=== PATIENT | male | born 1940 | race Caucasian/White ===

== ENCOUNTER → 2018-01-14 09:53 | Outpatient (CLI) | payer MEDICARE, SELFPAY ==
[2018-01-14 10:15] LABS: Add Manual Diff / Slide Review NO; Basophils Percent Auto 0.5 % (0-2); Eosinophils Percent Auto 2.8 % (2-4); Hematocrit 41.7 % (41-53); Hemoglobin 14.5 g/dL (13.5-17.5); Lymphocytes Percent Auto 23.1 % (25-40); Mean Corpuscular HGB Conc 34.7 % (30-36); Mean Corpuscular Hemoglobin 33.5 PG (26-34); Mean Corpuscular Volume 96.5 fL (80-100); Monocytes Percent Auto 8.4 % (3-14); Neutrophils Absolute Auto 2900 /uL (3000-5900); Neutrophils Percent Auto 65.2 % (50-75); Platelet Count 147 X10^3/uL (150-400); Red Blood Cell Count 4.33 X10^6/uL (4.5-5.9); Red Cell Distribution Width 13.1 % (11.6-14.8); White Blood Cell Count 4.5 X10^3/uL (4.5-11.0)
[2018-01-14 10:30] LABS: Alanine Aminotransferase 32 IU/L (21-72); Albumin 4.4 g/dL (3.5-5.0); Albumin Globulin Ratio 1.4 (1.0-2.8); Alkaline Phosphatase 58 U/L (38-126); Aspartate Aminotransferase 32 IU/L (17-59); BUN Creatinine Ratio 27.1 (6-22); Bilirubin Total 0.6 mg/dL (0.2-1.3); Blood Urea Nitrogen 19 mg/dL (9-20); Calcium 9.1 mg/dL (8.4-10.2); Carbon Dioxide 26 mmol/L (22-32); Chloride 104 mmol/L (98-107); Estimated Glomerular Filt Rate > 60.0 mL/min (>60); Globulin 3.2 g/dL (1.7-4.1); Glucose 89 mg/dL (80-110); HEMOLYSIS 22 (0-50); Potassium 4.4 mmol/L (3.4-5.1); Sodium 142 mmol/L (137-145); Total Protein 7.6 g/dL (6.3-8.2)
== END ==
PROVIDERS: Family Provider Family Medicine; PCP Family Medicine; Visit Provider Nurse Practitioner Gerontology
DX: C88.4 Extranodal marginal zone B-cell lymphoma of mucosa-associated lymphoid tissue [MALT-lymphoma] (principal)
CPT/HCPCS: 36415; 80053; 85025

== ENCOUNTER → 2018-02-28 08:18 | Outpatient (CLI) | payer MEDICARE, SELFPAY ==
[2018-02-28 09:25] LABS: Alanine Aminotransferase 28 IU/L (21-72); Albumin 4.1 g/dL (3.5-5.0); Albumin Globulin Ratio 1.5 (1.0-2.8); Alkaline Phosphatase 55 U/L (38-126); Aspartate Aminotransferase 28 IU/L (17-59); BUN Creatinine Ratio 17.8 (6-22); Bilirubin Total 0.9 mg/dL (0.2-1.3); Blood Urea Nitrogen 16 mg/dL (9-20); Carbon Dioxide 30 mmol/L (22-32); Chloride 104 mmol/L (98-107); Cholesterol 181 mg/dL (140-199); Estimated Glomerular Filt Rate > 60.0 mL/min (>60); Globulin 2.7 g/dL (1.7-4.1); Glucose 104 mg/dL (80-110); HDL Cholesterol 59 mg/dL (40-60); HEMOLYSIS < 15 (0-50); LDL Cholesterol Calculated 106 mg/dL (<100); Potassium 4.5 mmol/L (3.4-5.1); Sodium 141 mmol/L (137-145); Total Protein 6.8 g/dL (6.3-8.2); Triglycerides 79 mg/dL (35-150)
[2018-02-28 09:40] LABS: Add Manual Diff / Slide Review NO; Basophils Percent Auto 0.2 % (0-2); Lymphocytes Percent Auto 22.2 % (25-40); Mean Corpuscular HGB Conc 34.2 % (30-36); Mean Corpuscular Hemoglobin 33.4 PG (26-34); Mean Corpuscular Volume 97.5 fL (80-100); Monocytes Percent Auto 8.9 % (3-14); Neutrophils Absolute Auto 3200 /uL (3000-5900); Neutrophils Percent Auto 65.7 % (50-75); Platelet Count 137 X10^3/uL (150-400); Red Cell Distribution Width 12.7 % (11.6-14.8); White Blood Cell Count 4.8 X10^3/uL (4.5-11.0)
[2018-02-28 09:55] LABS: Prostate Specific Antigen Scrn 0.654 ng/mL (0.1-4.0)
== END ==
PROVIDERS: PCP Family Medicine; Visit Provider Family Medicine
DX: E78.5 Hyperlipidemia, unspecified (principal); Z12.5 Encounter for screening for malignant neoplasm of prostate
CPT/HCPCS: 36415; 80053; 80061; 85025; G0103

== ENCOUNTER → 2018-04-30 13:34 | Outpatient (CLI) | payer MEDICARE, SELFPAY ==
[2018-04-30 13:50] LABS: Add Manual Diff / Slide Review NO; Basophils Percent Auto 0.6 % (0-2); Eosinophils Percent Auto 1.1 % (2-4); Hematocrit 40.9 % (41-53); Lymphocytes Percent Auto 16.8 % (25-40); Mean Corpuscular HGB Conc 34.2 % (30-36); Mean Corpuscular Hemoglobin 33.1 PG (26-34); Mean Corpuscular Volume 96.7 fL (80-100); Monocytes Percent Auto 5.9 % (3-14); Neutrophils Absolute Auto 4000 /uL (3000-5900); Neutrophils Percent Auto 75.6 % (50-75); Platelet Count 137 X10^3/uL (150-400); Red Blood Cell Count 4.23 X10^6/uL (4.5-5.9); Red Cell Distribution Width 12.7 % (11.6-14.8); White Blood Cell Count 5.3 X10^3/uL (4.5-11.0)
[2018-04-30 14:02] LABS: Alanine Aminotransferase 31 IU/L (21-72); Albumin 4.3 g/dL (3.5-5.0); Albumin Globulin Ratio 1.7 (1.0-2.8); Alkaline Phosphatase 47 U/L (38-126); Aspartate Aminotransferase 28 IU/L (17-59); BUN Creatinine Ratio 26.7 (6-22); Bilirubin Total 0.7 mg/dL (0.2-1.3); Blood Urea Nitrogen 24 mg/dL (9-20); Carbon Dioxide 27 mmol/L (22-32); Chloride 104 mmol/L (98-107); Estimated Glomerular Filt Rate > 60.0 mL/min (>60); Globulin 2.5 g/dL (1.7-4.1); Glucose 134 mg/dL (80-110); HEMOLYSIS < 15 (0-50); Lactate Dehydrogenase 476 U/L (313-618); Potassium 4.4 mmol/L (3.4-5.1); Sodium 142 mmol/L (137-145); Total Protein 6.8 g/dL (6.3-8.2)
== END ==
PROVIDERS: Internal Medicine Hematology & Oncology; Family Provider Family Medicine; PCP Family Medicine; Visit Provider Internal Medicine Hematology & Oncology
DX: C88.4 Extranodal marginal zone B-cell lymphoma of mucosa-associated lymphoid tissue [MALT-lymphoma] (principal)
CPT/HCPCS: 36415; 80053; 83615; 85025

== ENCOUNTER 2018-05-02 15:30 | Oncology outpatient (ONC) | payer MEDICARE, SELFPAY ==
--- NOTE | 2018-01-15 11:24 | ONC.GEN.PN ---
Diagnosis (1) MALT lymphoma Diagnosis: 01/15/18 11:24 Previous EGD in February/2013 confirmed a large gastric ulcer. 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 Treated with radiation therapy. Subsequent relapse the lung in December/2008. Treated at that time with single agent Rituxan, completed in March/2011. Last EGD, ?2016 (report requested). History of Present Illness History Of Present Illness: 01/15/18 11:27 Mitchel returns today for routine follow-up. His last visitation here was in mid July,. He has done quite well in the interim. He denies any new lumps or bumps. He denies any recent fever. He generally has leach tank tender night sweats, after consuming alcohol the evening before. Currently, he averages 2 adult beverages per day. He is now on CPAP 6 nights per week. His recent blood pressure has been doing well. He is currently on only 5 mg of lisinopril per day. He will be leaving for his winter hiatus in [place] the of May. He and his generally remain in [place] until early December. Home Medications and Allergies Home Medications Medication Instructions Recorded Confirmed Type CHOLECALCIFEROL (VITAMIN D3) 400 unit PO QDAY #0 02/12/13 01/15/18 History (Vitamin D3) cyanocobalamin (vitamin B-12) 500 mcg PO QDAY #0 tab 08/14/16 01/15/18 History [Vitamin B-12] valacyclovir [Valtrex] 1,000 mg PO QDAY #3 tab 08/14/16 01/15/18 Rx lutein 20 mg PO QDAY #0 07/20/17 01/15/18 History vitamins A,C,S-yhzt-slvjkg 1 sgl PO QAM #0 07/20/17 01/15/18 History [PreserVision AREDS] lovastatin 20 mg tablet 20 mg PO HS #60 tab 01/10/18 01/15/18 Rx lisinopril 5 mg PO QDAY 01/15/18 01/15/18 History Allergies Allergy/AdvReac Type Severity Reaction Status Date / Time dorzolamide [From Cosopt] Allergy Unknown Unverified 11/14/17 11:55 timolol [From Cosopt] Allergy Unknown Unverified 11/14/17 11:55 Exam Exam: Blood pressure 119/67. O2 saturation on room air was 98%. Temperature 98.7?. Pulse rate 53. Weight 217 lb. The oropharynx today was clear. Both lungs were clear to auscultation and percussion. No pathologic lymphadenopathy was noted today in the pre or postauricular, neck, chin, supraclavicular, axillary, epitrochlear or inguinal areas. His heart sounds were fine. His abdomen was soft, nontender and without palpable organomegaly. There was no lower extremity edema. His skin examination was unremarkable. Impression Mitchel looks great today. His examination is completely normal. I will attempt to track down a copy of his recent EGD report. I have this gentleman returning for triage the 1st week in May, prior to his departure to [place]. I wished him well.
--- NOTE | 2018-01-15 11:29 | P.PNONC_ITS ---
Diagnosis (1) MALT lymphoma Diagnosis: 01/15/18 11:24 Previous EGD in February/2013 confirmed a large gastric ulcer. 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 Treated with radiation therapy. Subsequent relapse the lung in December/2008. Treated at that time with single agent Rituxan, completed in March/2011. Last EGD, ?2016 (report requested). History of Present Illness History Of Present Illness: 01/15/18 11:27 Mitchel returns today for routine follow-up. His last visitation here was in mid July,. He has done quite well in the interim. He denies any new lumps or bumps. He denies any recent fever. 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 Currently, he averages 2 adult beverages per day. He is now on CPAP 6 nights per week. His recent blood pressure has been doing well. He is currently on only 5 mg of lisinopril per day. He will be leaving for his winter hiatus in [place] the of May. He and his generally remain in [place] until early December. Home Medications and Allergies Home Medications Medication Instructions Recorded Confirmed Type CHOLECALCIFEROL (VITAMIN D3) 400 unit PO QDAY #0 02/12/13 01/15/18 History (Vitamin D3) cyanocobalamin (vitamin B-12) 500 mcg PO QDAY #0 tab 08/14/16 01/15/18 History [Vitamin B-12] valacyclovir [Valtrex] 1,000 mg PO QDAY #3 tab 08/14/16 01/15/18 Rx lutein 20 mg PO QDAY #0 07/20/17 01/15/18 History vitamins A,C,P-lutq-qwvick 1 sgl PO QAM #0 07/20/17 01/15/18 History [PreserVision AREDS] lovastatin 20 mg tablet 20 mg PO HS #60 tab 01/10/18 01/15/18 Rx lisinopril 5 mg PO QDAY 01/15/18 01/15/18 History Allergies Allergy/AdvReac Type Severity Reaction Status Date / Time dorzolamide [From Cosopt] Allergy Unknown Unverified 11/14/17 11:55 timolol [From Cosopt] Allergy Unknown Unverified 11/14/17 11:55 Exam Exam: Blood pressure 119/67. O2 saturation on room air was 98%. Temperature 98.7?. Pulse rate 53. Weight 217 lb. The oropharynx today was clear. Both lungs were clear to auscultation and percussion. No pathologic lymphadenopathy was noted today in the pre or postauricular, neck, chin, supraclavicular, axillary, epitrochlear or inguinal areas. His heart sounds were fine. His abdomen was soft, nontender and without palpable organomegaly. There was no lower extremity edema. His skin examination was unremarkable. Impression Mitchel looks great today. His examination is completely normal. I will attempt to track down a copy of his recent EGD report. I have this gentleman returning for triage the 1st week in May, prior to his departure to [place]. I wished him well.
[2018-01-15 11:35] VITALS: BP 119/67; PULSE 52; RESP 15; O2SAT 98
--- NOTE | 2018-05-02 15:55 | ONC.PN ---
PN -Subjective Interval history: Chief complaint 78-year-old gentleman with history of marginal zone lymphoma Interim events Patient came here today for scheduled follow-up visit. Patient clinically has been doing well without any new complaints. He atient complains only mild night sweats. He does not need to change clothes during the night. No fever. No chills. No enlarged lymph nodes. No shortness of breath no chest pain. No abdominal pain no diarrhea and no constipation. Overall patient has been doing well without clear evidence clinically of recurrence his previous known marginal zone lymphoma. Oncological history The patient said that every 5 years patient would have a recurrence of his no marginal zone lymphoma. The very 1st marginal zone lymphoma was diagnosed in 2001 in the right orbit. It was extremely rare. Patient underwent local radiation treatment. And 5 years later probably around 2008 patient had a relapse in the left lung according to patient. Patient was treated with rituximab monotherapy for 4 weekly treatments followed by maintenance therapy with rituximab completed March 15, 2011. And then another 5 years later in October of 2012 patient was found to have a gastric marginal zone lymphoma after a EGD evaluation for a large gastric ulcers. Patient underwent localized radiation therapy. There after patient has been undergoing active surveillance. - Patient Self-Reported Symptoms SR Constitution: Night Sweats SR eye issues: Eye pain, Vision changes SR ears, nose, mouth, throat issues: Congestion SR respiratory issues: Cough - Additional ROS All systems PM: reviewed and no additional remarkable complaints except as stated Home Medications and Allergies Home Medications Medication Instructions Recorded Confirmed Type CHOLECALCIFEROL (VITAMIN D3) 400 unit PO QDAY #0 02/12/13 04/05/18 History (Vitamin D3) cyanocobalamin (vitamin B-12) 500 mcg PO QDAY #0 tab 08/14/16 04/05/18 History [Vitamin B-12] valacyclovir [Valtrex] 1,000 mg PO QDAY #3 tab 08/14/16 04/05/18 Rx lutein 20 mg PO QDAY #0 07/20/17 04/05/18 History vitamins A,C,K-pwrv-vgpwmi 1 sgl PO QAM #0 07/20/17 04/05/18 History [PreserVision AREDS] lisinopril 10 mg tablet 5 mg PO QDAY #180 tab 04/05/18 Rx lovastatin 20 mg tablet 20 mg PO HS #180 tab 08/31/18 Rx omega 3-svy-zfl-fish oil [Fish Oil] 05/02/18 History turmeric root extract 500 mg PO DAILY 05/02/18 05/02/18 History Allergies Allergy/AdvReac Type Severity Reaction Status Date / Time dorzolamide [From Cosopt] Allergy Unknown Unverified 04/05/18 14:07 timolol [From Cosopt] Allergy Unknown Unverified 04/05/18 14:07 Exam Vital signs: Temperature 98.2?, heart rate 62, respiratory rate 18, blood pressure 104/65. Narrative: ECO Constitutional: Well developed, well nourished, not in any acute respiratory distress, average body habitus, well groomed, pleasant and cooperative. HEENT: Normocephalic atraumatic. Extraocular muscle movement intact. Pupils are round, equal and reactive to light and accommodations. Anicteric sclera. No hearing difficulty; Oral mucus membrane moist and without ulcers. Neck: Supple, symmetrical, and tracheal midline; No palpable thyromegaly and no palpable lymph nodes. Respiratory: No use of accessory muscles. Clear to auscultation, and no wheezes or rales or rubs. Cardiovascular: Regular rate and rhythm, S1 and S2 normal, no murmurs gallops or rubs. No JVD. No pitting edema of lower extremities. Abdomen: Soft, nontender, non-distended, bowel sounds normal, no palpable organomegaly, no hernia, no palpable masses. Lower extremities: No palpable pedal edema. Lymphatic: no palpable lymph nodes in the neck, axillae, or groins. Musculoskeletal: normal gait and station, no clubbing, no cyanosis, no pitting edema. Skin: no rashes, no ulcers, no petechiae Neurological: Awake and alert and oriented x3. CN II-XII grossly intact. No focal motor or sensory deficit. Psychiatric: Good judgment, good insight, normal affect, normal thought process, cooperative, no depression, no anxiety. Results - Imaging Additional studies: Procedures Endoscopic excision or destruction of lesion or tissue of stomach (10/10/12) Endoscopic polypectomy of large intestine (10/10/12) Insertion of intraocular lens prosthesis at time of cataract extraction, one-stage (05/05/14) Phacoemulsification and aspiration of cataract (05/05/14) Assessment and Plan (1) MALT lymphoma I talked with the patient that I do not think there is any evidence from clinical point of view to suggest recurrence of his known marginal zone lymphoma. I will continue current active surveillance. And I will have the patient come back in 6 months repeat CBC CMP LDH and beta 2 microglobulin. Patient voiced understanding. I also talked with patient that if he noticed anything different he should call us without any hesitation. (2) HTN (hypertension) Patient will need to follow up with his primary care provider.
--- NOTE | 2018-05-02 16:57 | P.PNONC_ITS ---
PN -Subjective Interval history: Chief complaint 78-year-old gentleman with history of marginal zone lymphoma Interim events Patient came here today for scheduled follow-up visit. Patient clinically has been doing well without any new complaints. He atient complains only mild night sweats. He does not need to change clothes during the night. No fever. No chills. No enlarged lymph nodes. No shortness of breath no chest pain. No abdominal pain no diarrhea and no constipation. Overall patient has been doing well without clear evidence clinically of recurrence his previous known marginal zone lymphoma. Oncological history The patient said that every 5 years patient would have a recurrence of his no marginal zone lymphoma. The very 1st marginal zone lymphoma was diagnosed in 2001 in the right orbit. It was extremely rare. Patient underwent local radiation treatment. And 5 years later probably around 2008 patient had a relapse in the left lung according to patient. Patient was treated with rituximab monotherapy for 4 weekly treatments followed by maintenance therapy with rituximab completed March 15, 2011. And then another 5 years later in October of 2012 patient was found to have a gastric marginal zone lymphoma after a EGD evaluation for a large gastric ulcers. Patient underwent localized radiation therapy. There after patient has been undergoing active surveillance. - Patient Self-Reported Symptoms SR Constitution: Night Sweats SR eye issues: Eye pain, Vision changes SR ears, nose, mouth, throat issues: Congestion SR respiratory issues: Cough - Additional ROS All systems PM: reviewed and no additional remarkable complaints except as stated Home Medications and Allergies Home Medications Medication Instructions Recorded Confirmed Type CHOLECALCIFEROL (VITAMIN D3) 400 unit PO QDAY #0 02/12/13 04/05/18 History (Vitamin D3) cyanocobalamin (vitamin B-12) 500 mcg PO QDAY #0 tab 08/14/16 04/05/18 History [Vitamin B-12] valacyclovir [Valtrex] 1,000 mg PO QDAY #3 tab 08/14/16 04/05/18 Rx lutein 20 mg PO QDAY #0 07/20/17 04/05/18 History vitamins A,C,K-feoj-gimetl 1 sgl PO QAM #0 07/20/17 04/05/18 History [PreserVision AREDS] lisinopril 10 mg tablet 5 mg PO QDAY #180 tab 04/05/18 Rx lovastatin 20 mg tablet 20 mg PO HS #180 tab 08/31/18 Rx omega 2-yug-nzk-fish oil [Fish Oil] 05/02/18 History turmeric root extract 500 mg PO DAILY 05/02/18 05/02/18 History Allergies Allergy/AdvReac Type Severity Reaction Status Date / Time dorzolamide [From Cosopt] Allergy Unknown Unverified 04/05/18 14:07 timolol [From Cosopt] Allergy Unknown Unverified 04/05/18 14:07 Exam Vital signs: Temperature 98.2?, heart rate 62, respiratory rate 18, blood pressure 104/65. Narrative: ECO Constitutional: Well developed, well nourished, not in any acute respiratory distress, average body habitus, well groomed, pleasant and cooperative. HEENT: Normocephalic atraumatic. Extraocular muscle movement intact. Pupils are round, equal and reactive to light and accommodations. Anicteric sclera. No hearing difficulty; Oral mucus membrane moist and without ulcers. Neck: Supple, symmetrical, and tracheal midline; No palpable thyromegaly and no palpable lymph nodes. Respiratory: No use of accessory muscles. Clear to auscultation, and no wheezes or rales or rubs. Cardiovascular: Regular rate and rhythm, S1 and S2 normal, no murmurs gallops or rubs. No JVD. No pitting edema of lower extremities. Abdomen: Soft, nontender, non-distended, bowel sounds normal, no palpable organomegaly, no hernia, no palpable masses. Lower extremities: No palpable pedal edema. Lymphatic: no palpable lymph nodes in the neck, axillae, or groins. Musculoskeletal: normal gait and station, no clubbing, no cyanosis, no pitting edema. Skin: no rashes, no ulcers, no petechiae Neurological: Awake and alert and oriented x3. CN II-XII grossly intact. No focal motor or sensory deficit. Psychiatric: Good judgment, good insight, normal affect, normal thought process , cooperative, no depression, no anxiety. Results - Imaging Additional studies: Procedures Endoscopic excision or destruction of lesion or tissue of stomach (10/10/12) Endoscopic polypectomy of large intestine (10/10/12) Insertion of intraocular lens prosthesis at time of cataract extraction, one- stage (05/05/14) Phacoemulsification and aspiration of cataract (05/05/14) Assessment and Plan (1) MALT lymphoma I talked with the patient that I do not think there is any evidence from clinical point of view to suggest recurrence of his known marginal zone lymphoma. I will continue current active surveillance. And I will have the patient come back in 6 months repeat CBC CMP LDH and beta 2 microglobulin. Patient voiced understanding. I also talked with patient that if he noticed anything different he should call us without any hesitation. (2) HTN (hypertension) Patient will need to follow up with his primary care provider.
== END 2018-05-03 12:00 ==
PROVIDERS: Family Provider Family Medicine; PCP Family Medicine; Visit Provider Nurse Practitioner Gerontology
DX: C88.4 Extranodal marginal zone B-cell lymphoma of mucosa-associated lymphoid tissue [MALT-lymphoma] (principal); I10 Essential (primary) hypertension
CPT/HCPCS: 99214

== ENCOUNTER → 2018-11-29 15:15 | Outpatient (CLI) | payer MEDICARE, SELFPAY ==
[2018-11-29 15:44] LABS: Add Manual Diff / Slide Review NO; Basophils Absolute Auto 0 /uL (0-100); Basophils Percent Auto 0.3 % (0-2); Eosinophils Absolute Auto 0 /uL (0-450); Eosinophils Percent Auto 0.8 % (2-4); Hematocrit 45.9 % (41-53); Hemoglobin 15.6 g/dL (13.5-17.5); Lymphocytes Absolute Auto 1600 /uL (1100-4500); Mean Corpuscular HGB Conc 33.9 % (30-36); Mean Corpuscular Hemoglobin 33.2 PG (26-34); Mean Corpuscular Volume 97.8 fL (80-100); Monocytes Absolute Auto 400 /uL (0-900); Monocytes Percent Auto 7.1 % (3-14); Neutrophils Absolute Auto 3700 /uL (1500-7000); Neutrophils Percent Auto 63.8 % (50-75); Platelet Count 164 X10^3/uL (150-400); Red Blood Cell Count 4.69 X10^6/uL (4.5-5.9); Red Cell Distribution Width 13.4 % (11.6-14.8); White Blood Cell Count 5.7 X10^3/uL (4.5-11.0)
[2018-11-29 16:02] LABS: Erythrocyte Sedimentation Rate 6 MM/HR (0-15)
[2018-11-29 19:35] LABS: Alanine Aminotransferase 40 IU/L (21-72); Albumin 5.1 g/dL (3.5-5.0); Albumin Globulin Ratio 1.6 (1.0-2.8); Alkaline Phosphatase 72 U/L (38-126); Aspartate Aminotransferase 55 IU/L (17-59); BUN Creatinine Ratio 21.1 (6-22); Bilirubin Total 0.9 mg/dL (0.2-1.3); Blood Urea Nitrogen 19 mg/dL (9-20); Calcium 9.9 mg/dL (8.4-10.2); Carbon Dioxide 22 mmol/L (22-32); Chloride 103 mmol/L (98-107); Estimated Glomerular Filt Rate > 60.0 mL/min (>60); Globulin 3.2 g/dL (1.7-4.1); Glucose 75 mg/dL (80-110); HEMOLYSIS 46 (0-50); Potassium 4.5 mmol/L (3.4-5.1); Sodium 141 mmol/L (137-145); Total Protein 8.3 g/dL (6.3-8.2)
[2018-11-29 19:36] LABS: C-Reactive Protein Quant < 0.5 mg/dL (<1.0)
== END ==
PROVIDERS: Family Provider Family Medicine; PCP Family Medicine; Visit Provider Ophthalmology
DX: C79.9 Secondary malignant neoplasm of unspecified site (principal); C85.81 Other specified types of non-Hodgkin lymphoma, lymph nodes of head, face, and neck
CPT/HCPCS: 36415; 80053; 84443; 85025; 85651; 86140

== ENCOUNTER → 2018-12-03 06:38 | Outpatient (CLI) | payer MEDICARE, SELFPAY ==
--- NOTE | 2018-12-03 | DI.MRI.S_ITS ---
PROCEDURE: MR ORBITS FACE NECK WO/W CON INDICATIONS: ORBITAL LYMPHOMA TECHNIQUE: Noncontrast sagittal T1 spin echo, axial FLAIR, axial gradient echo, axial diffusion and ADC acquired through the brain. Coronal STIR, thin-slice axial T1 spin echo through the orbits. After the administration of contrast, thin-slice axial and coronal T1 spin echo with fat saturation through the orbits, axial T1 spin echo with fat saturation through the brain. COMPARISON: [facility], CT, SOFT TISSUE NECK W CONTRAST, 09/13/2010, 11:28. FINDINGS: Image quality: Excellent. Orbits: Along the inferior aspect of the left orbit, there is abnormal soft tissue seen, which is hyperintense on T2-weighted imaging and demonstrates abnormal enhancement, as on series 14 image 4. A portion of this abnormal enhancing soft tissue involves the inferior rectus muscle. The inferior rectus muscle appears mildly thickened posteriorly. This abnormal soft tissue spans 2.9 cm transversely by 9 mm craniocaudally, with AP extent of approximately 1.4 cm. Globes are symmetrical. Note is made of bilateral lens replacements. The optic nerves are normal in size, without abnormal signal or enhancement. The extra-ocular muscles are normal and symmetric in appearance. Lacrimal glands are normal. Optic chiasm is normal. Periorbital soft tissues appear normal. CSF spaces: Ventricles are normal in size and shape. Basal cisterns are patent. No extra-axial fluid collections. Brain: No intracranial bleeds or mass effects. No abnormal intracranial enhancement. Martinez-white matter interface is intact. Diffusion weighted images demonstrate no acute ischemic insults. Pituitary gland appears normal, without sellar or suprasellar masses. Brainstem appears normal. Normal intravascular flow voids are present. Skull and face: Calvarial marrow is normal in signal. Sinuses: Sinuses and mastoids are clear. 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 Mild leftward nasal septal deviation is seen, with a leftward directed bony nasal septal spur. IMPRESSION: Abnormal enhancing soft tissue can be seen involving the inferior aspect of the left orbit, which is consistent with the given history of orbital lymphoma. No significant intracranial abnormality is seen. Dictated by: Jean-Pierre Lou M.D. on 12/03/2018 at 8:41 Approved by: Jean-Pierre Lou M.D. on 12/03/2018 at 8:49
== END ==
PROVIDERS: Family Provider Family Medicine; PCP Family Medicine; Visit Provider Ophthalmology
DX: C85.81 Other specified types of non-Hodgkin lymphoma, lymph nodes of head, face, and neck (principal)
CPT/HCPCS: 70543

== ENCOUNTER 2019-01-16 15:15 | Day surgery (SDC) | payer MEDICARE, SELFPAY ==
--- NOTE | 2019-01-16 | PATH_ITS ---
[facility] Accession Number: [id number] . 01 Material submitted: . esophagus - PROXIMAL ESOPHAGEAL MASS . 02 Diagnosis: Proximal Esophagus, Mass, Biopsy: Squamous mucosa with submucosal lymphoid aggregate with severe crush artifact; please see comment. Negative for epithelial dysplasia or malignancy. MRV/01/22/2019 . 02 Comment: Sections are of squamous mucosa with a crushed submucosal lymphoid aggregate. This histologic finding may explain the endoscopic impression of a mass. Given the severe crush artifact, the lymphoid architecture cannot be fully evaluated. If there is clinical suspicion for a lymphoproliferative disorder, repeat biopsies with sampling for flow cytometry is recommended. . As part of routine fiberglass quality technician, Dr. Ramírez has reviewed this case and agrees with the above interpretation. . 02 Electronically signed: . Alok Carrasco MD, PhD, Pathologist NPI- [id number] . 01 Gross description: . PROXIMAL ESOPHAGEAL MASS: Received in formalin are multiple fragment(s) of elena, soft tissue measuring 0.4 x 0.4 x 0.2 cm in aggregate submitted entirely in 1 cassette(s) /CKI /CKI . 02 Microscopic: . Sections are of squamous mucosa with a submucosal aggregate of small round blue cells with significant crush artifact which hinders full histologic evaluation. Despite the crush artifact, there is no significant nuclear atypia, mitotic activity or necrosis appreciated. To further evaluate the submucosal nodule, a panel of immunohistochemical stains is performed (each with an appropriately positive control). The cells of interest are variably positive for CD3 and CD20, and are negative for NATALIE (pancytokeratin), chromogranin and synaptophysin immunoreactivity. The overall morphology and immunoprofile are consistent with a lymphoid population, and there is no evidence of a carcinoma or neuroendocrine neoplasm. . . * This test was developed and its performance characteristics determined by [facility]. It has not been cleared or approved by the U.S. Food and Drug Administration. The FDA has determined that such clearance or approval is not necessary. This test is used for clinical purposes. It should not be regarded as investigational or for research. . 02 Pathologist provided ICD-10: K22.9 . 02 CPT . 577041, L04311, I03685 Performed at: 01 [facility] [address] [place] [address], [place], [place] [id number] MD Landen Franklin MD Phone: [phone] Performed at: 02 [facility] [address] [place] [id number] MD Dory Berger MD Phone: [phone]
[2019-01-16 13:30] VITALS: BP 141/77; PULSE 51; RESP 16; TEMP 35.8; O2SAT 99
--- NOTE | 2019-01-16 16:47 | PM.HP.1 ---
History of Present Illness Date Patient Seen: 01/16/19 Time Patient Seen: 16:00 Chief complaint: 00256 EGD Narrative: pt seen and examened Unchanged since visit in clinic 01/14/19 Plan for EGD and esophageal mass biopsy Patient History Family & Social History Social History: household members spouse other pickle ball, swimming, walking; at least 1 hour aerobic activity daily Tobacco & Substance use: Smoking Status Never smoker Meds Home Medications Medication Instructions Recorded Confirmed Type CHOLECALCIFEROL (VITAMIN D3) 400 unit PO QDAY #0 02/12/13 01/14/19 History (Vitamin D3) cyanocobalamin (vitamin B-12) 500 mcg PO QDAY #0 tab 08/14/16 01/14/19 History [Vitamin B-12] PreserVision AREDS 1 sgl PO QAM #0 07/20/17 01/14/19 History lutein 20 mg PO QDAY #0 07/20/17 01/14/19 History lisinopril 10 mg tablet 5 mg PO QDAY #180 tab 04/05/18 01/14/19 Rx lovastatin 20 mg tablet 20 mg PO HS #180 tab 04/05/18 01/14/19 Rx omega 7-zhv-fij-fish oil [Fish Oil] 05/02/18 01/14/19 History turmeric root extract 500 mg PO DAILY 05/02/18 01/14/19 History Allergies Allergy/AdvReac Type Severity Reaction Status Date / Time dorzolamide [From Cosopt] Allergy Intermediate itchy Unverified 01/16/19 15:38 doxazosin [From Cardura] Allergy Intermediate Chest Pain Verified 01/16/19 15:38 timolol [From Cosopt] Allergy Intermediate itchy Unverified 01/16/19 15:38 Exam Vital Signs (past 8 hours): - 01/16/19 13:30 Temperature 96.5 F L Pulse Rate 51 L Respiratory Rate 16 Blood Pressure 141/77 H Pulse Oximetry 99 Oxygen Delivery Method Room Air
[2019-01-16] MEDS: TETRACAINE/BENZOCAINE/BUTAMBEN (CETACAINE) BOTTLE 1 SPRAY TOP (16:50)
[2019-01-16] MEDS: fentaNYL 250 MCG/5 ML INJ IV (17:07)
[2019-01-16] MEDS: MIDAZOLAM 5 MG/ML VIAL 4 MG IV (17:08)
--- NOTE | 2019-01-16 17:12 | P.OP.ENDO_ITS ---
Operative Date/Time/Diagnoses Date of procedure: 01/16/19 Time of procedure: 17:11 Pre-op diagnosis: FDG avid distal esophagus in setting of recurrent marginal zone lymphoma Post-op diagnosis: same Procedure & Clinicians Study performed: EGD with esophageal mass biopsies Same procedure as scheduled: Yes Indications: 78 yo man with hx of multiply recurrent marginal zone lymphoma PET- CT from 12/18/2018 portion of proximal esophagus had increased FDG up take. Pt will pill dysphasia as well Surgeon: Shivam Sims Procedure Notes SCOAP/Timeout: completed Procedure in detail: Pt was taken to the OR, a time-out was completed. He was sedated with a total procedural dose of 6 mg of midazolam, 75 micro g of fentanyl. In addition benzocaine spray was used on the pharynx. A gastroscope was introduced into the mouth the epiglottis was identified and the scope was easily passed into the proximal esophagus. A submucosal mass was briefly seen. The scope was advanced without difficulty past it through the esophagus into the stomach. The stomach itself was inspected there were no lesions identified the Stacey gait appeared to be healthy. I did not transit the pyloric valve given the concern for the esophageal mass as the primary indication. The scope was retroflexed there was a Hill grade 2 valve. The Z-line was regular. Slowly removing the scope through the esophagus the mucosa generally appeared healthy. However at 21 cm from the incisors a rounded rubbery soft submucosal lesion was identified. It filled the esophageal lumen occupying perhaps 70% of its diameter and appeared to be on a wide based stalk. Multiple deep biopsies were obtained using biopsy forcep. With special effort made to press the biopsy forceps deep into the submucosal mass. The mass was at the area visualized on previous PET of increased esophageal FDG uptake -was between level of thyroid cartilage and the sternal notch. Area was reinspected the biopsy sites were noted to be hemostatic The scope was removed the mouth suction the patient brought PACU without incident Scope withdrawal time: NA Sedation minutes: 18 Findings: possible cancer Specimen(s): other (Proximal esophageal mass) Complications: none Impression: 1) proximal esophageal mass, submucosal, correlates with the area of FDG avidness, occluding 70% of lumen Plan for aftercare: Follow up with oncology Follow up: weeks Disposition: PACU
[2019-01-16 17:15] VITALS: BP 111/60; PULSE 58; RESP 14; TEMP 36.3; O2SAT 91
[2019-01-16 17:19] VITALS: BP 125/58; PULSE 62; RESP 20; O2SAT 91
[2019-01-16 17:31] VITALS: BP 103/59; PULSE 62; RESP 18; TEMP 36.6; O2SAT 93
== END 2019-01-16 17:43 | disposition home or self-care (01) ==
PROVIDERS: Family Provider Family Medicine; PCP Family Medicine; Visit Provider Surgery
PROC: 0DJ08ZZ Inspection of Upper Intestinal Tract, Via Natural or Artificial Opening Endoscopic (ICD-10-PCS; CPT 43235; principal; 2019-01-16 12:00)
DX: K22.9 Disease of esophagus, unspecified (principal)
CPT/HCPCS: 43239; 88305; 88341; 88342; 99152; J2250; J3010

== ENCOUNTER → 2019-04-15 09:01 | Outpatient (CLI) | payer MEDICARE, SELFPAY ==
[2019-04-15 09:41] LABS: Add Manual Diff / Slide Review NO; Basophils Absolute Auto 0 /uL (0-100); Basophils Percent Auto 0.3 % (0-2); Eosinophils Absolute Auto 100 /uL (0-450); Eosinophils Percent Auto 2.4 % (2-4); Hematocrit 41.9 % (41-53); Hemoglobin 14.1 g/dL (13.5-17.5); Lymphocytes Absolute Auto 1000 /uL (1100-4500); Lymphocytes Percent Auto 24.9 % (25-40); Mean Corpuscular HGB Conc 33.6 % (30-36); Mean Corpuscular Hemoglobin 32.9 PG (26-34); Mean Corpuscular Volume 97.9 fL (80-100); Monocytes Absolute Auto 400 /uL (0-900); Monocytes Percent Auto 9.1 % (3-14); Neutrophils Absolute Auto 2600 /uL (1500-7000); Neutrophils Percent Auto 63.3 % (50-75); Platelet Count 143 X10^3/uL (150-400); Red Blood Cell Count 4.28 X10^6/uL (4.5-5.9); Red Cell Distribution Width 13.5 % (11.6-14.8); White Blood Cell Count 4.2 X10^3/uL (4.5-11.0)
[2019-04-15 09:58] LABS: Alanine Aminotransferase 23 IU/L (21-72); Albumin 4.1 g/dL (3.5-5.0); Albumin Globulin Ratio 1.5 (1.0-2.8); Alkaline Phosphatase 51 U/L (38-126); Aspartate Aminotransferase 29 IU/L (17-59); BUN Creatinine Ratio 22.5 (6-22); Bilirubin Total 0.8 mg/dL (0.2-1.3); Blood Urea Nitrogen 18 mg/dL (9-20); Calcium 9.2 mg/dL (8.4-10.2); Carbon Dioxide 27 mmol/L (22-32); Chloride 103 mmol/L (98-107); Cholesterol 193 mg/dL (140-199); Estimated Glomerular Filt Rate > 60.0 mL/min (>60); Globulin 2.7 g/dL (1.7-4.1); Glucose 105 mg/dL (80-110); HDL Cholesterol 57 mg/dL (40-60); HEMOLYSIS < 15 (0-50); LDL Cholesterol Calculated 112 mg/dL (<100); Potassium 4.5 mmol/L (3.4-5.1); Sodium 139 mmol/L (137-145); Total Protein 6.8 g/dL (6.3-8.2); Triglycerides 120 mg/dL (35-150)
[2019-04-15 10:28] LABS: Thyroid Stimulating Hormone 2.66 uIU/mL (0.47-4.68)
== END ==
PROVIDERS: PCP Family Medicine; Visit Provider Family Medicine
DX: C85.80 Other specified types of non-Hodgkin lymphoma, unspecified site (principal); E78.5 Hyperlipidemia, unspecified; I10 Essential (primary) hypertension
CPT/HCPCS: 36415; 80053; 80061; 84443; 85025

== ENCOUNTER → 2020-03-16 | Outpatient (CLI) | payer MEDICARE, SELFPAY ==
--- NOTE | 2020-03-16 | DI.MRI.S_ITS ---
PROCEDURE: MR ORBITS FACE NECK WO/W CON INDICATIONS: TUMOR UNDER LEFT EYE TECHNIQUE: Noncontrast sagittal T1 spin echo, axial FLAIR, axial gradient echo, axial diffusion and ADC acquired through the brain. Coronal STIR, thin-slice axial T1 spin echo through the orbits. After the administration of contrast, thin-slice axial and coronal T1 spin echo with fat saturation through the orbits, axial T1 spin echo with fat saturation through the brain. COMPARISON: None. FINDINGS: Image quality: Excellent. Orbits: In this patient with this given history, scrutiny is given to the area of the previously seen abnormality along the inferior aspect of the left orbit. Within this region, no masses or areas of abnormal enhancement can be seen. However, there is mild thickening seen of the left inferior rectus muscle compared to the right. The extra-ocular muscles are otherwise normal and symmetric in appearance. Globes are symmetrical. Note is made of bilateral lens replacements. The optic nerves are normal in size, without abnormal signal or enhancement. No retrobulbar masses or fat abnormalities. Lacrimal glands are normal. Optic chiasm is normal. Periorbital soft tissues appear normal. CSF spaces: Ventricles are normal in size and shape. Basal cisterns are patent. No extra-axial fluid collections. Brain: No intracranial bleeds or mass effects. No abnormal intracranial enhancement. Amrtinez-white matter interface is intact. Diffusion weighted images demonstrate no acute ischemic insults. Pituitary gland appears normal, without sellar or suprasellar masses. Brainstem appears normal. Normal intravascular flow voids are present. Skull and face: Calvarial marrow is normal in signal. Sinuses: Sinuses and mastoids are clear. IMPRESSION: Mild asymmetric thickening of the left inferior rectus muscle compared to the right. No additional imaging findings of residual masses or abnormal enhancement seen within the left inferior orbit. Please consider follow-up in 6-12 months, with orbital MRI, performed without and with contrast. Dictated by: Jean-Pierre Lou M.D. on 03/16/2020 at 16:30 Approved by: Jean-Pierre Lou M.D. on 03/16/2020 at 16:33
== END ==
PROVIDERS: PCP Family Medicine; Referring Provider Radiology Radiation Oncology; Visit Provider Radiology Radiation Oncology
DX: C88.4 Extranodal marginal zone B-cell lymphoma of mucosa-associated lymphoid tissue [MALT-lymphoma] (principal)
CPT/HCPCS: 70543; A9579

== ENCOUNTER → 2020-05-03 10:03 | Outpatient (CLI) | payer MEDICARE, SELFPAY ==
[2020-05-03 10:49] LABS: Cholesterol 199 mg/dL (140-199); HDL Cholesterol 65 mg/dL (40-60); LDL Cholesterol Calculated 113 mg/dL (<100); Triglycerides 104 mg/dL (35-150)
== END ==
PROVIDERS: PCP Family Medicine; Referring Provider Family Medicine; Visit Provider Family Medicine
DX: C88.4 Extranodal marginal zone B-cell lymphoma of mucosa-associated lymphoid tissue [MALT-lymphoma] (principal); E78.5 Hyperlipidemia, unspecified; N40.0 Benign prostatic hyperplasia without lower urinary tract symptoms
CPT/HCPCS: 36415; 80061

== ENCOUNTER → 2020-12-23 13:34 | Outpatient (CLI) | payer MEDICARE, SELFPAY ==
--- NOTE | 2020-12-23 13:39 | DI.CT.S_ITS ---
PROCEDURE: CT CHEST ABD PEL W CON INDICATIONS: Marginal zone lymphoma, back pain, esophageal mass, fatigue TECHNIQUE: After the administration of oral and intravenous contrast, 5 mm thick sections acquired from the lung apices to the symphysis. 5 mm coronal and sagittal reformats were performed, with additional 7 mm coronal MIP reformats through the lungs. For radiation dose reduction, the following was used: automated exposure control, adjustment of mA and/or kV according to patient size. COMPARISON: [facility], CT, CHEST/ABD/PEL WITH CONTRAST, 06/19/2013, 9:04. FINDINGS: CHEST: Lungs: Diffuse scarring/atelectasis and postsurgical changes involving the left lower lobe as before. Pleura: No pleural effusions or pneumothorax. Heart: Heart size is normal. No pericardial effusion. Mild coronary artery calcifications. Chest nodes: Normal. Thyroid gland: Negative Aorta: Normal. Pulmonary arteries: Normal. Esophagus: Normal. ABDOMEN: Liver: Hepatic steatosis. Gallbladder: Contracted Bile ducts: Normal. Pancreas: Normal. Spleen: Normal. Adrenals: Normal. Kidneys and ureters: Normal. Stomach and duodenum: Normal. Bowel: Colonic diverticulosis Other: No free fluid or air. Abdominal nodes: Normal. Aorta and IVC: Normal in size. Ventral wall: Normal. PELVIS: Bladder: Normal. Inguinal region: Small fat containing right inguinal hernia. Pelvic nodes: Normal. Bones: No suspicious bony lesions. No vertebral body compression fractures. IMPRESSION: No discrete esophageal mass identified although a small lesion may be occult. Elsewhere, no evidence of active metastatic disease. Mild coronary atherosclerosis Additional chronic/incidental findings as above. Dictated by: Shan Dacosta M.D. on 12/23/2020 at 16:34 Approved by: Shan Dacosta M.D. on 12/23/2020 at 17:02
== END ==
PROVIDERS: PCP Student in an Organized Health Care Education/Training Program; Referring Provider Internal Medicine; Visit Provider Internal Medicine
DX: R53.83 Other fatigue; C83.08 Small cell B-cell lymphoma, lymph nodes of multiple sites; M54.9 Dorsalgia, unspecified; K76.0 Fatty (change of) liver, not elsewhere classified; K22.9 Disease of esophagus, unspecified; I25.10 Atherosclerotic heart disease of native coronary artery without angina pectoris; K40.90 Unilateral inguinal hernia, without obstruction or gangrene, not specified as recurrent
CPT/HCPCS: 71260; 74177

== ENCOUNTER → 2022-04-25 10:02 | Outpatient (CLI) | payer MEDICARE, SELFPAY ==
--- NOTE | 2022-04-25 10:10 | DI.RAD.S_ITS ---
PROCEDURE: XR ANKLE RT MIN 3V INDICATIONS: R medial heel pain TECHNIQUE: 3 views of the ankle were acquired. COMPARISON: None. FINDINGS: Bones: No acute fractures or dislocations. Healed fracture deformity of the distal fibula. Periarticular osteophyte formation at the tibiotalar joint. Ununited fracture of the medial malleolus. Ankle mortise is normally aligned. No suspicious bony lesions. Calcaneal spurring. Soft tissues: No tibiotalar joint effusion. Achilles tendon appears normal. IMPRESSION: 1. Chronic tibial and fibular fractures. 2. No acute fracture. No osseous lesion. If symptoms and/or clinical suspicion for pathology persist, further assessment with repeat, or advanced imaging (e.g., CT, MRI, or bone scan) may be helpful for further assessment. Dictated by: Brandie Corrigan M.D. on 04/25/2022 at 11:17 Approved by: Brandie Corrigan M.D. on 04/25/2022 at 11:18
== END ==
PROVIDERS: PCP Student in an Organized Health Care Education/Training Program; Referring Provider Student in an Organized Health Care Education/Training Program; Visit Provider Student in an Organized Health Care Education/Training Program
DX: M79.671 Pain in right foot (principal); M84.461A Pathological fracture, right tibia, initial encounter for fracture; M84.463A Pathological fracture, right fibula, initial encounter for fracture
CPT/HCPCS: 73610

== ENCOUNTER → 2023-01-26 12:29 | Outpatient (CLI) | payer MEDICARE, SELFPAY ==
--- NOTE | 2023-01-26 | DI.ECHO.S_ITS ---
[facility]---------+ [facility] +---------+ : : [address] : : : : [id number] : : : : Phone: [phone]+ Echocardiogram Report + + :Name: ANIBAL GUERRA Study Date: 01/26/2023 Height: 72 in : [facility] Reading[facility] Weight: 215 lb : : Gender: Male BSA: 2.2 m2 : :: 1940 Age: 82 yrs BP: 133/85 mmHg: :Reason For Study: Thoracic Aortic Ectasia : :Ordering Physician: Javier, : :Sylvester Performed By: Lynda Shoemaker : :Referring: SYLVESTER HERRERA : + + Interpretation Summary 1) Normal left ventricular thickness, size, wall motion, and systolic function (EF 55-60%). 2) The right ventricle is mildly dilated. The right ventricular systolic function is normal. 3) There is mild aortic regurgitation. 4) No prior Echo available for comparison. Procedure: A two-dimensional transthoracic echocardiogram with color flow and Doppler was performed. The study quality was technically adequate. Comparison is made with the echocardiogram of 01/11/2015. The patient was in atrial fibrillation with heart rates between 50 bpm during the exam. Left Ventricle: The left ventricle is normal in size. There is mild concentric left ventricular hypertrophy. The ejection fraction is estimated to be 55-60%. Left ventricular systolic function appears normal without focal wall motion abnormalities. Diastolic parameters suggest a relaxation abnormality of the left ventricle, consistent with probable normal filling pressures. Right Ventricle: The right ventricle is mildly dilated. The right ventricular systolic function is normal. Atria: The left atrial size is normal. Right atrial size is normal. There is no Doppler evidence for an interatrial shunt. Mitral Valve: The mitral valve is normal. There is no mitral valve stenosis. There is trace mitral regurgitation. Aortic Valve: The aortic valve is trileaflet. The aortic valve opens well. There is mild aortic valve sclerosis. There is no aortic valve stenosis. There is mild aortic regurgitation. Tricuspid Valve: The tricuspid valve is normal. There is no tricuspid stenosis. There is trace tricuspid regurgitation. The right ventricular systolic pressure is estimated to be at least 27 mmHg based on an estimated right atrial pressure of 3 mm Hg. Pulmonic Valve: The pulmonic valve leaflets are thin and pliable; valve motion is normal. There is no pulmonic valvular stenosis. There is trace pulmonic regurgitation. Great Vessels: The aortic root is normal size. The ascending aorta is normal in size. The pulmonary artery is normal size. The inferior vena cava was not well visualized. Pericardium/ Pleura There is no pericardial effusion. There is no pleural effusion. MMode/2D Measurements & Calculations LVIDd: 4.2 cm LVOT diam: 2.1 cm LVIDs: 3.0 cm Ao root diam: 3.7 cm FS: 28.6 % asc Aorta Diam: 3.4 cm EPSS: 1.1 cm IVSd: 1.3 cm LVPWd: 1.0 cm LV mederos. diameter/BSA (cm/m^2): 1.9 LV sys. diameter/BSA (cm/m^2): 1.4 LA A2 area: 19.6 cm2 RA long axis: 5.5 cm LA A4 area: 13.5 cm2 RA area: 18.8 cm2 LA length (vol): 5.5 cm RA vol: 54.7 ml LA vol: 40.8 ml RA : 24.9 ml/m2 LA vol index: 18.6 ml/m2 RVD1 (basal): 4.2 cm LVLs ap4: 5.9 cm LVLd ap2: 7.3 cm TAPSE_phl: 2.7 cm LVLs ap2: 6.5 cm Doppler Measurements & Calculations Ao V2 max: 132.0 cm/sec LVOT Max Pablito: 81.5 cm/sec Ao V2 mean: 95.9 cm/sec LV V1 max P.7 mmHg Ao max P.0 mmHg LV V1 VTI: 21.6 cm Ao mean P.0 mmHg ABDI(I,D): 2.2 cm2 Ao V2 VTI: 34.3 cm ABDI(V,D): 2.1 cm2 sev ratio: 0.63 ABDI indexed to BSA (cm^2/m^2): 0.99 AI P1/2t: 789.7 msec AI dec slope: 158.0 cm/sec2 MV E max pablito: 69.9 cm/sec TR max pablito: 247.0 cm/sec MV A max pablito: 88.1 cm/sec TR max P.5 mmHg MV E/A: 0.79 PA V2 max: 65.9 cm/sec Med Peak E' Pablito: 4.8 cm/sec PA V2 mean: 48.3 cm/sec E/E' med: 14.4 PA mean P.0 mmHg Lat Peak E' Pablito: 8.0 cm/sec PA pr(Accel): 17.3 mmHg E/E' lat: 8.7 E/e' average: 11.6 MV dec time: 0.28 sec SV(LVOT): 74.8 ml AV P1/2t-pr_phl: 788.0 msec AV VR_phl: 0.62 ABDI(VTI)/BSA_phl: 0.99 MV P1/2t-pr_phl: 83.0 msec Reading Physician:04:32 PM
== END ==
PROVIDERS: PCP Pediatrics; Referring Provider Internal Medicine Cardiovascular Disease; Visit Provider Internal Medicine Cardiovascular Disease
DX: I35.1 Nonrheumatic aortic (valve) insufficiency (principal); I77.810 Thoracic aortic ectasia
CPT/HCPCS: 93306

== ENCOUNTER → 2024-03-19 10:14 | Outpatient (CLI) | payer MEDICARE, SELFPAY ==
[2024-03-19 10:55] LABS: Hematocrit 38.7 % (41-53); Hemoglobin 13.4 g/dL (13.5-17.5); Mean Corpuscular HGB Conc 34.6 % (30-36); Mean Corpuscular Hemoglobin 35.4 PG (26-34); Mean Corpuscular Volume 102.3 fL (80-100); Platelet Count 122 X10^3/uL (150-400); Red Blood Cell Count 3.78 X10^6/uL (4.5-5.9); Red Cell Distribution Width 12.6 % (11.6-14.8); White Blood Cell Count 3.5 X10^3/uL (4.5-11.0)
[2024-03-19 11:14] LABS: BUN Creatinine Ratio 18.5 (6-22); Blood Urea Nitrogen 17 mg/dL (9-20); Calcium 9.1 mg/dL (8.4-10.2); Carbon Dioxide 26 mmol/L (22-32); Chloride 105 mmol/L (98-107); Cholesterol 238 mg/dL (140-199); Estimated Glomerular Filt Rate > 60 mL/min (>60); Glucose 111 mg/dL (80-110); HDL Cholesterol 71 mg/dL (40-60); HEMOLYSIS < 15 (0-50); LDL Cholesterol Calculated 150 mg/dL (<100); Potassium 4.2 mmol/L (3.4-5.1); Sodium 137 mmol/L (137-145); Triglycerides 87 mg/dL (35-150)
== END ==
PROVIDERS: PCP Family Medicine; Referring Provider Internal Medicine Cardiovascular Disease; Visit Provider Internal Medicine Cardiovascular Disease
DX: I48.19 Other persistent atrial fibrillation (principal); E78.5 Hyperlipidemia, unspecified; Z79.01 Long term (current) use of anticoagulants
CPT/HCPCS: 36415; 80048; 80061; 85027

== ENCOUNTER → 2024-12-08 14:40 | Outpatient (CLI) | payer MEDICARE, SELFPAY | PROVIDERS: PCP Family Medicine; Visit Provider Urology | DX: N32.89 Other specified disorders of bladder (principal); R39.9 Unspecified symptoms and signs involving the genitourinary system | CPT/HCPCS: 51798; 87086; 99213 ==

== ENCOUNTER 2025-02-10 12:08 | Day surgery (SDC) | payer MEDICARE, SELFPAY ==
[2025-02-02 09:26] VITALS: BMI 27.6
[2025-02-10] VITALS (9 sets, daily range): BP systolic 97–136; BP diastolic 52–75; PULSE 47–87; RESP 11–18; TEMP 36.1–36.4; O2SAT 95–98; BMI 28.3
--- NOTE | 2025-02-10 | PATH_ITS ---
[facility] Accession Number: [id number] No. of containers..02 Tissue . 01 Material submitted: . PART A: bladder - BLADDER MASS PART B: bladder - DEEP MARGIN . 01 Diagnosis: A. BLADDER MASS: Prodecure: Transurethral resection of bladder tumor. Tumor site: Not specified. Tumor type: Papillary urothelial carcinoma, non-invasive. Histologic grade: Low grade. Tumor extent: Non-invasive papillary carcinoma. Lymphovascular involvement: Not identified. Muscularis propria: Present and negative for tumor. . B. DEEP MARGIN: Low grade papillary urothelial carcinoma, non-invasive. Negative for invasion into lamina propria. Muscularis propria is present and is negative for tumor. [facility] 02/18/2025 1403 Local . 01 Comment: This case was also reviewed by Dr. Artem Low, who agrees with the interpretation. . 01 Electronically signed: . Carlie Angel MD, Pathologist NPI- [id number] . 01 Gross description: . A. Received in formalin, labeled with two identifiers and bladder mass, are multiple elena, friable soft tissue fragments received with a piece of cardboard, aggregating to 1.5 x 1.0 x 0.3 cm. Filtered and submitted entirely in cassette A1. B. Received in formalin, labeled with two identifiers and deep margin, are multiple elena, friable soft tissue fragments received with a fragment of cardboard inscribed with DM. The tissue aggregates to 0.7 x 0.3 x 0.2 cm. Filtered and submitted entirely in cassette B1. ([id number]) /R 02/14/2025 1138 Local . 01 Pathologist provided ICD-10: N32.89 . 01 CPT . 602297, [id number] Specimen Comment: A courtesy copy of this report has been sent to [facility] Pathology Performed at: [address] [facility] [address] [facility], [place], [place] [id number] MD Landen Franklin MD Phone: [phone]
[2025-02-10] MEDS: LACTATED RINGERS 1,000 ML 21 ML IV ×2 (12:45→15:18)
--- NOTE | 2025-02-10 12:53 | PM.PREOP ---
Pre-operative Note COVID-19 COVID-19 status: Not tested Interval Note History & Physical reviewed/Exam performed by Physician: Yes Changes to H&P: No
[2025-02-10] MEDS: levoFLOXacin 500 MG/100 ML PIGGYBACK 100 MG IV (13:05)
--- NOTE | 2025-02-10 13:24 | SUR.OPER ---
Lithotomy on padded OR bed, head on pillow, arms secured on padded arm boards at <90 degrees abduction. Legs secured in padded yellow fins stirrups.
--- NOTE | 2025-02-10 14:01 | P.OP_ITS ---
Operative Date/Time/Diagnoses Date of procedure: 02/10/25 Time of procedure: 13:20 Pre-op diagnosis: Bladder mass Post-op diagnosis: same Procedure & Clinicians Procedure: Cystoscopy Transurethral resection of bladder tumor Same procedure(s) as scheduled: Yes Indications: 84 y/o M noted to have mild bladder wall thickening on imaging performed as surveillance for his h/o non-Hodgkin lymphoma. Discussed that his cystoscopy in December of 2024 was notable for a 2cm papillary mass along his left posterior bladder wall, immediately superior and lateral to his left ureteral orifice. Discussed the need for a cystoscopy and TURBT. Discussed risks of the procedure to include pain, bleeding, infection, injury to urethra/prostate/bladder/uretera l orifice, need for a ureteral stent, prolonged catheterization, and possible open repair of ureteral and/or bladder injury. Surgeon: Charly Mora Click Yes if Unassisted: Yes Anesthesia Type: General Operative Notes Findings: 2cm papillary mass along left posterior bladder wall Closure Type: not applicable Specimen(s): other (bladder mass, deep margin) Applied: catheter Estimated Blood Loss (mL): 10 Blood products transfused: none Procedure in detail: Patient was identified in the preoperative holding area and consent confirmed. He was then brought to the operating room where general anesthesia was induced. He was then placed in the low lithotomy position. He was then prepped and draped in the usual sterile fashion. A surgical timeout was conducted and all were in agreement. Access to the bladder was obtained via a 21Fr cystoscope. Complete cystoscopy was then performed using a 30 and 70 degree lens. A 2cm papillary mass was noted immediately posterior and superior to his left ureteral orifice. Bilateral ureteral orifices were visualized and noted to be orthotopic in nature. No other concerning lesions were appreciated. The cystoscope was then removed and his urethral meatus was serially dilated using [place] sounds from 22Fr to 30Fr. The 26Fr resectoscope with visual obturator was then advanced through his urethra and into his bladder. The working element with Gyrus loop was then assembled and passed through the resectoscope and into the bladder. The mass was then resected to its base. The resection bed was then fulgurated. The left ureteral orifice was left intact throughout the procedure and clear efflux was appreciated at case end. All bladder specimens were then manually evacuated from the bladder using the resectoscope. Hemostasis was evaluated and noted to be excellent at case end. An 18Fr martel was then inserted into the bladder at case end, 10cc of sterile water was used for balloon insufflation. Anesthesia was reversed, he was extubated in the OR and transferred to the PACU in stable condition for recovery. Complications: none Post-operative Condition: stable Disposition: PACU Plan for aftercare: Discharge home with martel catheter. Will return to Urology clinic on 13 February 2025 for a voiding trial.
[2025-02-10] MEDS: OXYCODONE IR 5 MG TABLET PO (15:46)
== END 2025-02-10 16:00 | disposition home or self-care (01) ==
PROVIDERS: PCP Family Medicine; Referring Provider Urology; Visit Provider Urology
PROC: 0TBB8ZZ Excision of Bladder, Via Natural or Artificial Opening Endoscopic (ICD-10-PCS; CPT 52235; principal; 2025-02-10 13:30)
DX: N32.89 Other specified disorders of bladder (principal); C85.90 Non-Hodgkin lymphoma, unspecified, unspecified site; N40.0 Benign prostatic hyperplasia without lower urinary tract symptoms; I25.10 Atherosclerotic heart disease of native coronary artery without angina pectoris; I47.10 Supraventricular tachycardia, unspecified; K21.9 Gastro-esophageal reflux disease without esophagitis; I48.92 Unspecified atrial flutter; H54.7 Unspecified visual loss; Z79.01 Long term (current) use of anticoagulants; Z85.828 Personal history of other malignant neoplasm of skin; Z85.028 Personal history of other malignant neoplasm of stomach; Z85.118 Personal history of other malignant neoplasm of bronchus and lung
CPT/HCPCS: 52235; J1100; J1956; J2405; J2704; J3010; J3490

== ENCOUNTER → 2025-02-13 15:22 | Outpatient (CLI) | payer MEDICARE, SELFPAY | PROVIDERS: PCP Family Medicine; Visit Provider Urology | DX: R39.9 Unspecified symptoms and signs involving the genitourinary system (principal) | CPT/HCPCS: 87086 ==

== ENCOUNTER → 2025-02-24 12:16 | Outpatient (CLI) | payer MEDICARE, SELFPAY ==
--- NOTE | 2025-02-24 12:17 | DI.ECHO.S_ITS ---
Version: 1 Study ID: [id number] [address] [place] [address] Name: ANIBAL GUERRA Study Date: 02/24/2025, 12: 31 PM : 1940 BP: 134 / 79 mmHg Gender: Male Height: 71 in Age: 84 Years Weight: 208 lb BSA: 2.14 mA??? Ordering: SYLVESTER HERRERA Referring: SYLVESTER HERRERA Clinician: Arnold Ordoñez Reason For Study: ASCENDING AORTA DILATION History: Summary Statements 1) Normal left ventricular thickness, size, wall motion, and systolic function (EF 55-60%). 2) The right ventricle is mildly dilated. The right ventricular systolic function is normal. 3) There is mild aortic regurgitation. There is mild mitral regurgitation. 4) The ascending aorta is mildly enlarged at 4.2cm. 5) Compared to the Echo done 01/26/2023, mild ascending aortic enlargement is noted on this study. Procedure: A two-dimensional transthoracic echocardiogram with color flow and Doppler was performed. The study quality was technically good. Comparison is made with the echocardiogram of 01/26/2023. The patient was in atrial fibrillation with heart rates between 51-66 bpm during the exam. Left Ventricle: The left ventricle is normal in size and wall thickness. There is no ventricular septal defect visualized. The ejection fraction is estimated to be 55-60%. There are no focal wall motion abnormalities. Diastolic function could not be accurately assessed due to atrial fibrillation. Right Ventricle: The right ventricle is mildly dilated. The right ventricular systolic function is normal. Atria: The left atrium is moderately dilated. The right atrium is mildly dilated. There is no Doppler evidence for an interatrial shunt. Mitral Valve: There is mild mitral annular calcification. The mitral valve leaflets are slightly calcified. There is mild mitral regurgitation. Aortic Valve: The aortic valve is trileaflet. The aortic valve is mildly calcified. There is no aortic valve stenosis. There is mild aortic regurgitation. Tricuspid Valve: The tricuspid valve leaflets are thin and pliable. There is mild tricuspid regurgitation. Pulmonic Valve: The pulmonic valve is not well visualized. There is no pulmonic valvular regurgitation. Great Vessels: The aortic root is borderline dilated. The ascending aorta is mildly enlarged. The pulmonary artery is normal size. The inferior vena cava was not visualized. Pericardium/ Pleura: There is no pericardial effusion. 2D and M-Mode Measurements and Calculations LVIDd: 4.7 cm AoV Openin.82 cm LVIDs: 3.0 cm LVOT diam: 2.32 cm IVSd: 1.09 cm Ao root diam: 4.0 cm LVPWd: 0.99 cm asc Aorta Diam: 4.2 cm LV mederos. diameter/BSA (cm/m^2): 2.18 LV sys. diameter/BSA (cm/m^2): 1.40 EPSS: 1.24 cm RVD1 (basal): 4.1 cm RVD2 (mid): 3.4 cm TAPSE: 2.43 cm LA A4 area: 28.5 insole presser??? RA area: 21.5 insole presser??? LA A2 area: 25.0 insole presser??? RA long axis: 5.9 cm LA length (vol): 6.6 cm RA vol: 67.1 ml LA vol: 91.1 ml RA : 31.3 ml/mA??? LA vol index: 42.5 ml/mA??? Doppler Measurements and Calculations Ao V2 max: 132.3 cm/sec LVOT Max Pablito: 83.4 cm/sec Ao V2 mean: 90.5 cm/sec LV V1 max P.8 mmHg Ao V2 VTI: 31.0 cm LV V1 VTI: 21.1 cm Ao max P.0 mmHg SV(LVOT): 89.1 ml Ao mean P.7 mmHg ABDI(I,D): 2.9 insole presser??? ABDI(V,D): 2.7 insole presser??? ABDI indexed to BSA (cm^2/m^2): 1.34 sev ratio: 0.68 AI P1/2t: 697.5 msec AI dec slope: 207.4 cm/secA??? MV E max pablito: 54.6 cm/sec MV dec time: 0.29 sec MV A max pablito: 84.0 cm/sec MV E/A: 0.65 Med Peak E' Pablito: 3.6 cm/sec Lat Peak E' Pablito: 6.8 cm/sec E/e' average: 11.6 TR max pablito: 282.6 cm/sec PA mean P.85 mmHg TR max P.9 mmHg PA V2 max: 65.9 cm/sec Electronically signed by: Sylvester Herrera 02/24/2025, 3: 56 PM
== END ==
LOC: ECHO 12:16
PROVIDERS: PCP Family Medicine; Referring Provider Internal Medicine Cardiovascular Disease; Visit Provider Internal Medicine Cardiovascular Disease
DX: I08.3 Combined rheumatic disorders of mitral, aortic and tricuspid valves (principal); I77.810 Thoracic aortic ectasia; I77.89 Other specified disorders of arteries and arterioles
CPT/HCPCS: 93306